=== PATIENT | male | born 1965 | race Caucasian/White ===

== ENCOUNTER 2022-09-05 05:43 | Emergency (ER) | payer MEDICAID ==
[~2022-09-05] VITALS: Ht 175.3 cm; Wt 81.6 kg
--- NOTE | 2022-09-05 05:47 | NUR ---
Patient to ER bed 6 to gown for evaluation. Side rails up. Report given to Brenda Bowers(reg).
[2022-09-05 05:48] VITALS: BP_SYST 138
--- NOTE | 2022-09-05 06:07 | NUR ---
Dr. Lloyd at bedside examining the patient.
[2022-09-05] MEDS ORDERED: KETOROLAC TROMETHAMINE 60 MG/2 ML VIAL IM ONE (06:15)
--- NOTE | 2022-09-05 06:40 | NUR ---
Patient taken to CT.
--- NOTE | 2022-09-05 07:04 | NUR ---
Patient is back from CT.
[2022-09-05] MEDS ORDERED: TRAM50TA2 PO (07:17)
--- NOTE | 2022-09-05 07:45 | NUR ---
Digital Retoucher notified to contact facility for transfer to home.
--- NOTE | 2022-09-05 10:00 | NUR ---
Instructional Design Specialist re: Transportation Telephone call made to [facility] [employer] [facility] to make the transportation arrangements for the patient to return back to [facility]. Arrangements made with Peggy for a a pickup between 1:30p - 2p today. Per Peggy , she will be faxing over a PCS form that needs to be completed for future transports. The hospital fax number was given to Peggy for her to fax the form over. Contact information for myself and the hospital ER department was provided to Peggy. The transport for today is confirmed and arranged. CHANCE Boles advised of the transportation arrangements and advised that when transport are made the same day, there is a 3 - 4 hour window for the transport to arrive. [facility] [facility]: [phone] Reference Number: [id number]
--- NOTE | 2022-09-05 10:06 | NUR ---
SKEIN WINDING OPERATOR COORDINATING WITH INSURANCE TRANSPORTATION FOR PT DISCHARGE.
--- NOTE | 2022-09-05 10:53 | NUR ---
Pt eating diabetic tray of food. Pt sitting up in high fowlers with minimal assistance.
[2022-09-05] MEDS ORDERED: FERR325T91 PO (11:38)
[2022-09-05] MEDS ORDERED: DOCU-159 PO (11:38)
[2022-09-05] MEDS ORDERED: SENN8.6T19 PO (11:38)
[2022-09-05] MEDS ORDERED: SACU1TAB PO (11:38)
[2022-09-05] MEDS ORDERED: HYDROcodone/ACETAMIN 10-325 MG TAB PO ONE (13:45)
--- NOTE | 2022-09-05 15:20 | NUR ---
Pt medicated for moderate head pain. Pt repositioned. no issues.
--- NOTE | 2022-09-05 15:24 | NUR ---
Follow up call made to [facility] at [phone]. Per Han, the transport was cancelled due to the patient's medi-gregory attached to a medical group, therefor the [employer] would not cover the transport. Yajaira provided me with the medical group's contact information. I called [facility]. I spoke with Yusef who advised that a ed case manager will need to provide an authorization for a transport to be arranged. I advised yusef that attempts to arrange transport have been on going since and this is an urgent matter. He advised he would send an email to the ed case manager and ask them to wang the process. Contact information provided for myself and the ED. yusef states i will receive a call from the ed case manager who will provide the transportation company and authorization so that arrangements can be made for transport. I attempted to inform the nurse, however she was not available. I left a message and requested she return my call. [facility]: [phone]
--- NOTE | 2022-09-05 18:33 | NUR ---
Pt awaiting transport services set for 1999.
--- NOTE | 2022-09-05 19:18 | NUR ---
report recieved from Kelly LAZO
--- NOTE | 2022-09-05 19:23 | NUR ---
pt resting, aox4 pt resting comfortably, vss, nad even unlabored respirations, emptied urinals, pt is notified of picker tender helper at 2000. pt is placed on director of cardiac cath lab safety percautions in place.
[2022-09-05] MEDS ORDERED: IBUPROFEN 800 MG TABLET PO ONE (20:30)
--- NOTE | 2022-09-05 21:05 | NUR ---
medicated pt according to Dr orders due to pt c/o headache and ankle pain. repositioned, offered pillow, water, notified pt of delay in cotton picker operator from transportation, pt is aware, vss, nad, even unlabored respirations.
--- NOTE | 2022-09-05 21:32 | NUR ---
pt asleep, tried to reassess for pain level, vss, nad, even unlabored respirations. still awaiting cone picker.
--- NOTE | 2022-09-05 22:18 | NUR ---
spoke to Matthew Mcdaniel, center is aware of pt being transferred back now by [facility].
--- NOTE | 2022-09-05 22:18 | NUR ---
Patient given written and verbal discharge instructions and verbalizes understanding. ER MD discussed with patient the results and treatment provided. Patient in stable condition. ID arm band removed. PT GOING TO [facility] AND SPOKE TO NURSE SUPERVIOSR ABOUT ARRIVAL WITH [facility]. Rx of tramadol given. Patient educated on pain management and to follow up with PMD. Pain Scale Opportunity for questions provided and answered. Medication side effect fact sheet provided.
[2022-09-05 22:20] VITALS: BP_SYST 140
== END 2022-09-05 22:20 | disposition home or self-care (01) ==
LOC: SED 05:43
DX: S92.012A Displaced fracture of body of left calcaneus, initial encounter for closed fracture (principal); S00.93XA Contusion of unspecified part of head, initial encounter; E11.9 Type 2 diabetes mellitus without complications; Z79.899 Other long term (current) drug therapy; W18.30XA Fall on same level, unspecified, initial encounter; Y93.89 Activity, other specified; Y92.89 Other specified places as the place of occurrence of the external cause; Y99.8 Other external cause status
CPT/HCPCS: 99285; 70450; 73610; 73620; 76376; 96372; J1885

== ENCOUNTER 2022-09-08 19:44 | Emergency (ER) | payer MEDICAID ==
[~2022-09-08] VITALS: Ht 177.8 cm; Wt 81.6 kg
[~2022-09-08 19:44] MED LIST: DOCU-159 PO; FERR325T91 PO; SACU1TAB PO; SENN8.6T19 PO; TRAM50TA2 PO
[2022-09-08 19:53] VITALS: BP_SYST 159
[2022-09-08] MEDS ORDERED: MORPHINE 4 MG INJ. 4 MG/ML VIAL IM ONE (20:30)
[2022-09-08] MEDS ORDERED: MORPHINE 4 MG INJ. 4 MG/ML VIAL IVP ONE ×2 (21:15→22:15)
[2022-09-09] MEDS ORDERED: HALOPERIDOL LACTATE 5 MG/ML VIAL IVP ONE (05:45)
[2022-09-09] MEDS ORDERED: LORazepam 2 MG/ML VIAL IVP ONE (05:45)
[2022-09-09 09:15] VITALS: BP_SYST 158
== END 2022-09-09 09:11 | disposition home or self-care (01) ==
LOC: SED 19:44
DX: S09.90XA Unspecified injury of head, initial encounter (principal); M25.572 Pain in left ankle and joints of left foot; M25.552 Pain in left hip; I10 Essential (primary) hypertension; E11.9 Type 2 diabetes mellitus without complications; Z79.899 Other long term (current) drug therapy; W19.XXXA Unspecified fall, initial encounter; Y93.89 Activity, other specified; Y92.89 Other specified places as the place of occurrence of the external cause; Y99.8 Other external cause status
CPT/HCPCS: 99285; 70450; 96374; 73521; 73610; 72125; 76376; 96376; J2270